=== PATIENT | female | born 1935 ===

== ENCOUNTER 2017-08-19 07:28 | Day surgery (SDC) | payer OTHER, MEDICAID ==
[2017-08-19 07:55] VITALS: BMI 28.9
[2017-08-19] MEDS ORDERED: Propofol 10 mg/ml Inj (20 ML) ONE ×2 (08:47→08:49)
--- NOTE | 2017-08-19 08:51 | CP.SDSHP ---
Same Day Surgery H & P - History Proposed Procedure: Colonoscopy Pre-Op Diagnosis: Lower GI bleeding - Previous Medical/Surgical History Cardiac: Hypertension, ASHD/CAD Endocrine/Metabolic: Diabetes (Hyperlipidemia) Previous Surgical History: CABG MERARI Back surgery - Allergies Allergies: Allergies renax Allergy (Uncoded 10/19/15 13:38) - Current Medications Current Medications: reviewed, per reconciliation - Physical Exam General Appearance: wdwn nad Vital Signs: Vital Signs 08/19/17 07:55 Temperature 97.3 F L Pulse Rate 73 Respiratory 19 Rate Blood Pressure 91/45 L O2 Sat by Pulse 98 Oximetry Mental Status: Alert & Oriented x3 Heart: WNL Lungs: WNL GI: WNL - {Optional Preform as Required} Abdomen: WNL - Impression Impression: Lower GI bleed Pt. Evaluated Today:Candidate for Anesthesia & Procedure: Yes - Date & Time Date: 08/19/17 Time: 08:50 Short Stay Discharge - Short Stay Discharge Admitting Diagnosis/Reason for Visit: RECTAL BLEEDING Disposition: HOME/ ROUTINE
[2017-08-19] MEDS ORDERED: ePHEDrine 50 mg/ml Inj ONE (09:06)
[2017-08-19 09:50] VITALS: TEMP 96.9
[2017-08-19 10:27] VITALS: BP 109/50; PULSE 56; RESP 18; O2SAT 97
== END 2017-08-19 10:24 | disposition home or self-care (01) ==
LOC: C.ENDO 07:28
PROVIDERS: ATTEND Internal Medicine Gastroenterology
DX: K57.31 Diverticulosis of large intestine without perforation or abscess with bleeding (principal); K64.1 Second degree hemorrhoids; I25.10 Atherosclerotic heart disease of native coronary artery without angina pectoris; E11.9 Type 2 diabetes mellitus without complications; I10 Essential (primary) hypertension; E78.5 Hyperlipidemia, unspecified; Z95.1 Presence of aortocoronary bypass graft
CPT/HCPCS: 45378; 82948; J2704

== ENCOUNTER 2019-01-12 21:10 | Observation (INO) | payer OTHER ==
[2019-01-12 21:11] VITALS: BMI 28.9
[2019-01-12] MEDS ORDERED: Iohexol 240 (50 ml) PO ONE (22:15)
[2019-01-12] MEDS ORDERED: Sodium Chloride 0.9% 1,000 ML IV ONE (22:15)
[2019-01-12] MEDS ORDERED: Iohexol 240 (50 ml) ONE (22:27)
[2019-01-12 22:46] LABS: BLOOD UREA NITROGEN 20 mg/dL (7-17); CALCIUM 10.2 mg/dl (8.6-10.4); GFR NON-AFRICAN AMERICAN > 60; LIPASE 336 U/L (23-300)
[2019-01-12 22:50] LABS: ALB/GLOB RATIO 1.7 (1.0-2.1); ALBUMIN 4.5 g/dL (3.5-5.0); ALT/SGPT 21 U/L (9-52); AST/SGOT 64 U/L (14-36)
[2019-01-13 00:01] LABS: BASO % 0.4 % (0.0-2.0); EOS # 0.4 K/uL (0.0-0.7); EOS % 4.9 % (0.0-4.0); HEMOGLOBIN 9.4 g/dL (11.0-16.0); LYMPH # 3.1 K/uL (1.0-4.3); LYMPH % 38.8 % (20.0-40.0); MEAN CELL VOLUME 93.4 fL (81.0-99.0); MEAN CORPUSCULAR HEMOGLOBIN 31.7 pg (27.0-31.0); MEAN CORPUSCULAR HGB CONC 33.9 g/dL (33.0-37.0); MEAN PLATELET VOLUME 8.8 fL (7.2-11.7); MONO # 0.8 K/uL (0.0-0.8); MONO % 10.3 % (0.0-10.0); NEUT # 3.6 K/uL (1.8-7.0); NEUT % 45.6 % (50.0-75.0); NRBC % 0.1 % (0.0-2.0); RBC 2.96 Mil/uL (3.80-5.20); RED CELL DISTRIBUTION WIDTH 13.4 % (11.5-14.5); WHITE BLOOD COUNT 7.9 K/uL (4.8-10.8)
[2019-01-13 00:06] LABS: PROTHROMBIN TIME 11.2 SECONDS (9.7-12.2)
[2019-01-13 00:06] LABS: URINE BACTERIA RARE (<OCC); URINE BILIRUBIN NEGATIVE (NEGATIVE); URINE BLOOD NEGATIVE (NEGATIVE); URINE CLARITY Clear (Clear); URINE COLOR Straw (YELLOW); URINE GLUCOSE (UA) NORMAL (Normal); URINE LEUKOCYTE ESTERASE TRACE Leu/uL (Negative); URINE PROTEIN NEGATIVE (NEGATIVE); URINE UROBILINOGEN NORMAL mg/dL (0.2-1.0)
--- NOTE | 2019-01-13 00:14 | C.PDOC ---
History Of Present Illness 83-year-old female presents to the ED for evaluation of dark stool since 4 days ago. Patient also complains of slight dizziness. She denies fever, chills, or any pain at this time. Chief Complaint (Nursing): GI Problem History Per: Patient History/Exam Limitations: no limitations Onset/Duration Of Symptoms: Days (4) Additional History Per: Patient Past Medical History Reviewed: Historical Data, Nursing Documentation, Vital Signs Vital Signs: Last Vital Signs Temp 98.1 F 01/12/19 21:22 Pulse 67 01/12/19 21:57 Resp 14 01/12/19 21:57 BP 132/55 L 01/12/19 21:57 Pulse Ox 96 01/12/19 21:57 - Medical History PMH: Arthritis, Back Problems, Diabetes, Gastritis, HTN, Hypercholesterolemia, Peripheral Edema Denies: Chronic Kidney Disease Surgical History: Appendectomy, CABG, Coronary Stent, Endoscopy - [facility] Procedures BREAST DX PROCEDURE NEC (05/30/14) COLONOSCOPY (02/01/14) DX ULTRASOUND-THORAX NEC (05/30/14) PERCUTAN NEEDLE BIOPSY OF BREAST (05/30/14) Family History: States: Unknown Family Hx - Social History Hx Tobacco Use: No Hx Alcohol Use: No Hx Substance Use: No - Immunization History Hx Tetanus Toxoid Vaccination: No Hx Influenza Vaccination: Yes Hx Pneumococcal Vaccination: No Review Of Systems Constitutional: Negative for: Fever, Chills Gastrointestinal: Positive for: Other (dark stools ). Negative for: Abdominal Pain, Rectal Pain Neurological: Positive for: Dizziness Physical Exam - Physical Exam Appears: Non-toxic, No Acute Distress Skin: Normal Color, Warm, Dry Head: Atraumatic, Normacephalic Eye(s): bilateral: Normal Inspection Oral Mucosa: Moist Neck: Supple Chest: Symmetrical, No Deformity, No Tenderness Cardiovascular: Rhythm Regular, No Murmur Respiratory: Normal Breath Sounds, No Rales, No Rhonchi, No Wheezing Gastrointestinal/Abdominal: Soft, No Tenderness, No Guarding, No Rebound Rectal: Other (dark stools noted ) Extremity: Normal ROM, Capillary Refill (less than 2 seconds ) Neurological/Psych: Oriented x3, Normal Speech, Normal Cognition ED Course And Treatment - Laboratory Results Result Diagrams: 01/12/19 23:51 01/12/19 23:51 Lab Results: PT 11.2 SECONDS (9.7-12.2) 01/12/19 23:51 INR 1.0 01/12/19 23:51 APTT 37.0 SECONDS (21-34) H 01/12/19 23:51 Total Bilirubin 0.8 mg/dL (0.2-1.3) 01/12/19 22:27 AST 64 U/L (14-36) H 01/12/19 22:27 ALT 21 U/L (9-52) 01/12/19 22:27 Alkaline Phosphatase 31 U/L (38-126) L 01/12/19 22:27 Total Protein 7.1 g/dL (6.3-8.3) 01/12/19 22:27 Albumin 4.5 g/dL (3.5-5.0) 01/12/19 22:27 Globulin 2.6 gm/dL (2.2-3.9) 01/12/19 22:27 Albumin/Globulin Ratio 1.7 (1.0-2.1) 01/12/19 22:27 Lipase 336 U/L (23-300) H 01/12/19 22:27 Urine Color Straw (YELLOW) 01/12/19 23:59 Urine Clarity Clear (Clear) 01/12/19 23:59 Urine pH 6.0 (5.0-8.0) 01/12/19 23:59 Ur Specific [place] 1.003 (1.003-1.030) 01/12/19 23:59 Urine Protein Negative mg/dL (NEGATIVE) 01/12/19 23:59 Urine Glucose (UA) Normal mg/dL (Normal) 01/12/19 23:59 Urine Ketones Negative mg/dL (NEGATIVE) 01/12/19 23:59 Urine Blood Negative (NEGATIVE) 01/12/19 23:59 Urine Nitrate Negative (NEGATIVE) 01/12/19 23:59 Urine Bilirubin Negative (NEGATIVE) 01/12/19 23:59 Urine Urobilinogen Normal mg/dL (0.2-1.0) 01/12/19 23:59 Ur Leukocyte Esterase Trace Veronika/uL (Negative) 01/12/19 23:59 Urine WBC (Auto) 5 /hpf (0-5) 01/12/19 23:59 Urine Bacteria Rare (<OCC) 01/12/19 23:59 ECG: Interpreted By Me, Viewed By Me ECG Rhythm: Sinus Rhythm ECG Interpretation: Normal, No Acute Changes Interpretation Of ECG: NSR, normal tracings. Rate From EC O2 Sat by Pulse Oximetry: 96 (on RA) Pulse Ox Interpretation: Normal Progress Note: Bloodwork, UA, CT A/P, EKG ordered and reviewed. IV Fluids given. Disposition Discussed With : Edwina Falcon Doctor Will See Patient In The: Hospital Counseled Patient/Family Regarding: Diagnosis - Disposition Disposition: HOSPITALIZED Disposition Time: 03:49 Condition: STABLE Forms: [facility] (German) - POA Present On Arrival: None - Clinical Impression Clinical Impression: Gastrointestinal hemorrhage, Abdominal pain - Scribe Statement The provider has reviewed the documentation as recorded by the Scribe (Vinita Kaufman) Provider Attestation: All medical record entries made by the Scribe were at my direction and pers onally dictated by me. I have reviewed the chart and agree that the record accurately reflects my personal performance of the history, physical exam, medical decision making, and the department course for this patient. I have also personally directed, reviewed, and agree with the discharge instructions and disposition.
[2019-01-13 00:24] LABS: ALBUMIN 4.5 g/dL (3.5-5.0); BLOOD UREA NITROGEN 19 mg/dL (7-17); CALCIUM 10.2 mg/dl (8.6-10.4); GFR NON-AFRICAN AMERICAN > 60
[2019-01-13 00:25] LABS: ALB/GLOB RATIO 1.9 (1.0-2.1); ALT/SGPT 19 U/L (9-52); AST/SGOT 30 U/L (14-36)
[2019-01-13] MEDS ORDERED: Iodixanol 320 MG/ML 100 ML BOTTLE IV ONE (00:36)
[2019-01-13 04:28] LABS: MEAN CELL VOLUME 93.8 fL (81.0-99.0); MEAN CORPUSCULAR HEMOGLOBIN 31.3 pg (27.0-31.0); MEAN CORPUSCULAR HGB CONC 33.3 g/dL (33.0-37.0); MEAN PLATELET VOLUME 8.8 fL (7.2-11.7); RBC 2.89 Mil/uL (3.80-5.20); RED CELL DISTRIBUTION WIDTH 13.7 % (11.5-14.5); WHITE BLOOD COUNT 7.7 K/uL (4.8-10.8)
[2019-01-13] MEDS: Dextrose 5%/0.9% NS 1,000 ML IV SCH ×2 (05:05→18:26)
--- NOTE | 2019-01-13 07:49 | CP.PCM.CON ---
History of Present Illness - History of Present Illness History of Present Illness: 83 yo female h/o CAD, DM, HTN, OA c/o dizziness . Had black stools a few days ago.. Reports epig pain x 4 days- poorly described. Denies CP, NSAID. HAd EGD and colonosocpy few yrs ago. Review of Systems - Constitutional Constitutional: Anorexia, Fatigue, Weakness. absent: Fever, Weight Loss - EENT Eyes: absent: Photophobia Nose/Mouth/Throat: absent: Throat Swelling - Cardiovascular Cardiovascular: absent: Chest Pain, Dyspnea - Respiratory Respiratory: absent: Dyspnea, Hemoptysis, Wheezing - Gastrointestinal Gastrointestinal: Abdominal Pain, Melena, Nausea. absent: Constipation, Hematemesis, Hematochezia, Loose Stools, Vomiting - Genitourinary Genitourinary: absent: Hematuria - Musculoskeletal Musculoskeletal: absent: Muscle Cramps - Integumentary Integumentary: absent: Pruritus, Rash, Jaundice - Neurological Neurological: absent: Abnormal Gait, Convulsions Past Patient History - Infectious Disease Hx of Infectious Diseases: None - Past Medical History & Family History Past Medical History?: Yes - Past Social History Smoking Status: Never Smoked - CARDIAC Hx Hypercholesterolemia: Yes Hx Hypertension: Yes Hx Peripheral Edema: Yes - PULMONARY Hx Respiratory Disorders: No - NEUROLOGICAL Hx Neurological Disorder: Yes (OTERO'S PALSY) - HEENT Hx HEENT Problems: Yes Hx Cataracts: Yes (both eyes) - RENAL Hx Chronic Kidney Disease: No - ENDOCRINE/METABOLIC Hx Endocrine Disorders: Yes Hx Diabetes Mellitus Type 2: Yes - HEMATOLOGICAL/ONCOLOGICAL Hx Blood Disorders: Yes Hx Blood Transfusions: Yes (2010) - INTEGUMENTARY Hx Dermatological Problems: No - MUSCULOSKELETAL/RHEUMATOLOGICAL Hx Arthritis: Yes - GASTROINTESTINAL Hx Gastritis: Yes - GENITOURINARY/GYNECOLOGICAL Hx Genitourinary Disorders: No - PSYCHIATRIC Hx Substance Use: No - SURGICAL HISTORY Hx Appendectomy: Yes Hx Coronary Artery Bypass Graft: Yes Hx Coronary Stent: Yes - ANESTHESIA Hx Anesthesia: Yes Hx Anesthesia Reactions: No Hx Malignant Hyperthermia: No Meds Allergies/Adverse Reactions: Allergies Allergy/AdvReac Type Severity Reaction Status Date / Time renax Allergy Uncoded 10/19/15 13:38 - Medications Medications: Current Medications Famotidine (Pepcid) 20 mg IVP Q12 [facility] Home Med (Multivit,Iron,Min 5/Folic Acid [Strovite Forte Caplet]) 1 tab PO DAILY [facility] Home Med (Simvastatin [Simvastatin]) 20 mg PO HS [facility] Hydralazine HCl (Apresoline) 50 mg PO BID [facility] Dextrose/Sodium Chloride (Dextrose 5%/0.9% Ns 1000 Ml) 1,000 mls @ 75 mls/hr IV .[id number] [facility] Last Admin: 01/13/19 05:05 Dose: 75 mls/hr Isosorbide Mononitrate (Imdur) 30 mg PO DAILY [facility] Labetalol HCl (Trandate) 200 mg PO BID [facility] Lisinopril (Zestril) 20 mg PO DAILY [facility] Triamterene/HCTZ (Dyazide 25 Mg-37.5 Mg) 1 cap PO DAILY [facility] Physical Exam - Constitutional Appears: Non-toxic - Neck Exam Neck exam: Negative for: Tenderness - Respiratory Exam Respiratory Exam: Clear to Auscultation Bilateral - Cardiovascular Exam Cardiovascular Exam: RRR - GI/Abdominal Exam GI & Abdominal Exam: Normal Bowel Sounds, Soft. absent: Guarding, Mass, Re bound, Tenderness - Extremities Exam Extremities exam: Negative for: pedal edema - Neurological Exam Neurological exam: Alert, Oriented x3 Results - Vital Signs Recent Vital Signs: Last Vital Signs Temp 98.1 F 01/13/19 05:40 Pulse 61 01/13/19 05:40 Resp 20 01/13/19 05:40 BP 147/72 01/13/19 05:40 Pulse Ox 95 01/13/19 05:40 - Labs Result Diagrams: 01/13/19 03:44 01/12/19 23:51 Labs: Laboratory Results - last 24 hr 01/12/19 01/12/19 01/12/19 22:27 22:31 23:51 WBC RBC Hgb Hct MCV MCH MCHC RDW Plt Count MPV Neut % (Auto) Lymph % (Auto) [place] % (Auto) Eos % (Auto) Baso % (Auto) Neut # (Auto) Lymph # (Auto) [place] # (Auto) Eos # (Auto) Baso # (Auto) PT 11.2 INR 1.0 APTT 37.0 H Sodium 129 L Potassium 5.0 Chloride 96 L Carbon Dioxide 25 Anion Gap 13 BUN 20 H Creatinine 0.8 Est GFR ( Amer) > 60 Est GFR (Non-Af Amer) > 60 Random Glucose 145 H D Calcium 10.2 Total Bilirubin 0.8 AST 64 H ALT 21 Alkaline Phosphatase 31 L Total Protein 7.1 Albumin 4.5 Globulin 2.6 Albumin/Globulin Ratio 1.7 Lipase 336 H Urine Color Urine Clarity Urine pH Ur Specific [place] Urine Protein Urine Glucose (UA) Urine Ketones Urine Blood Urine Nitrate Urine Bilirubin Urine Urobilinogen Ur Leukocyte Esterase Urine WBC (Auto) Urine Bacteria Stool Occult Blood Positive H Blood Type Antibody Screen 01/12/19 01/12/19 01/12/19 23:51 23:51 23:51 WBC 7.9 D RBC 2.96 L Hgb 9.4 L D Hct 27.6 L MCV 93.4 MCH 31.7 H MCHC 33.9 RDW 13.4 Plt Count 207 MPV 8.8 Neut % (Auto) 45.6 L Lymph % (Auto) 38.8 [place] % (Auto) 10.3 H Eos % (Auto) 4.9 H Baso % (Auto) 0.4 Neut # (Auto) 3.6 Lymph # (Auto) 3.1 [place] # (Auto) 0.8 Eos # (Auto) 0.4 Baso # (Auto) 0.0 PT INR APTT Sodium 129 L Potassium 4.1 Chloride 95 L Carbon Dioxide 24 Anion Gap 14 BUN 19 H Creatinine 0.8 Est GFR ( Amer) > 60 Est GFR (Non-Af Amer) > 60 Random Glucose 117 H Calcium 10.2 Total Bilirubin 0.2 AST 30 ALT 19 Alkaline Phosphatase 47 Total Protein 6.8 Albumin 4.5 Globulin 2.4 Albumin/Globulin Ratio 1.9 Lipase Urine Color Urine Clarity Urine pH Ur Specific [place] Urine Protein Urine Glucose (UA) Urine Ketones Urine Blood Urine Nitrate Urine Bilirubin Urine Urobilinogen Ur Leukocyte Esterase Urine WBC (Auto) Urine Bacteria Stool Occult Blood Blood Type O POSITIVE Antibody Screen Negative 01/12/19 01/13/19 23:59 03:44 WBC 7.7 RBC 2.89 L Hgb 9.0 L Hct 27.1 L MCV 93.8 MCH 31.3 H MCHC 33.3 RDW 13.7 Plt Count 202 MPV 8.8 Neut % (Auto) Lymph % (Auto) [place] % (Auto) Eos % (Auto) Baso % (Auto) Neut # (Auto) Lymph # (Auto) [place] # (Auto) Eos # (Auto) Baso # (Auto) PT INR APTT Sodium Potassium Chloride Carbon Dioxide Anion Gap BUN Creatinine Est GFR ( Amer) Est GFR (Non-Af Amer) Random Glucose Calcium Total Bilirubin AST ALT Alkaline Phosphatase Total Protein Albumin Globulin Albumin/Globulin Ratio Lipase Urine Color Straw Urine Clarity Clear Urine pH 6.0 Ur Specific [place] 1.003 Urine Protein Negative Urine Glucose (UA) Normal Urine Ketones Negative Urine Blood Negative Urine Nitrate Negative Urine Bilirubin Negative Urine Urobilinogen Normal Ur Leukocyte Esterase Trace Urine WBC (Auto) 5 Urine Bacteria Rare Stool Occult Blood Blood Type Antibody Screen Assessment & Plan (1) Abdominal pain Assessment and Plan: consider gastrtis, ulcer Status: Acute (2) Gastrointestinal hemorrhage Assessment and Plan: Melena. Hb=9. Consdier PUD, AVM. REc: NPO, EGD, pPI IV. check Hb. Hold aspirin, plavix Status: Acute (3) CAD (coronary artery disease) Status: Acute (4) Diabetes Status: Acute (5) Hyponatremia Assessment and Plan: [id number] Status: Acute (6) Elevated lipase Assessment and Plan: mild. Doubt pancreatitis. Status: Acute
--- NOTE | 2019-01-13 09:38 | CT ---
Date of service: 01/13/2019 PROCEDURE: CT Abdomen and Pelvis with contrast HISTORY: GI bleeding COMPARISON: None available. TECHNIQUE: CT scan of the abdomen and pelvis was performed after administration of intravenous contrast. Oral contrast was administered. Coronal and sagittal reformatted images were obtained. Contrast dose: 100 mL Visipaque 320 Radiation dose: Total exam DLP = 419.98 mGy-cm. This CT exam was performed using one or more of the following dose reduction techniques: Automated exposure control, adjustment of the mA and/or kV according to patient size, and/or use of iterative reconstruction technique. FINDINGS: LOWER THORAX: The visualized lungs are clear. LIVER: Normal in size. No gross lesion or ductal dilatation. GALLBLADDER AND BILE DUCTS: Well distended. No calcified gallstones, wall thickening or pericholecystic fluid. PANCREAS: Normal in size. No gross lesion or ductal dilatation. SPLEEN: Normal in size. ADRENALS: No discrete nodule. KIDNEYS AND URETERS: The right kidney surgically absent. The left kidney is normal in size normal in size. No hydronephrosis. VASCULATURE: No aortic aneurysm. There are aortic atherosclerotic calcifications present. BOWEL: The small bowel loops are normal in caliber. There is large amount of stool in the ascending and transverse colon. No evidence for bowel obstruction. APPENDIX: Normal appendix. PERITONEUM: No free fluid. No free air. LYMPH NODES: No enlarged lymph nodes. BLADDER: Well distended and normal in appearance. REPRODUCTIVE: The uterus is normal in size. BONES: No acute fracture. Within normal limits for the patient's age. OTHER FINDINGS: There is a spigelian hernia in the right lower quadrant several nonobstructed small bowel lobes. There is a right supraumbilical ventral hernia containing part of the left hepatic lobe. IMPRESSION: 1. 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 2. Right supraumbilical ventral hernia containing portion of the left hepatic lobe. 3. Status post right nephrectomy. 4. Constipation. A preliminary report was provided by [employer].
[2019-01-13] MEDS ORDERED: hydroCHLOROthiazide-Triamterene 25 mg-37.5 mg Cap UD PO SCH (10:00)
[2019-01-13] MEDS: Multivitamin With Minerals Tab PO SCH (10:08)
[2019-01-13] MEDS ORDERED: Lactated Ringer's 500 ML IV ONE ×2 (12:16)
[2019-01-13] MEDS ORDERED: Propofol 10 mg/ml Inj (20 ML) ONE (12:17)
--- NOTE | 2019-01-13 12:24 | CP.PCM.PN ---
Subjective - Date & Time of Evaluation Date of Evaluation: 01/13/19 Time of Evaluation: 12:24 - Subjective Subjective: EGD- pylorus ulcer. No bleeding. Objective - Vital Signs/Intake and Output Vital Signs (last 24 hours): Temp Pulse Resp BP Pulse Ox 98.1 F 71 20 127/66 97 01/13/19 07:47 01/13/19 07:47 01/13/19 07:47 01/13/19 07:47 01/13/19 09:00 - Medications Medications: Current Medications Famotidine (Pepcid) 20 mg IVP Q12 [facility] Last Admin: 01/13/19 10:07 Dose: 20 mg Hydralazine HCl (Apresoline) 50 mg PO BID [facility] Last Admin: 01/13/19 10:08 Dose: 50 mg Dextrose/Sodium Chloride (Dextrose 5%/0.9% Ns 1000 Ml) 1,000 mls @ 75 mls/hr IV .[id number] [facility] Last Admin: 01/13/19 05:05 Dose: 75 mls/hr Isosorbide Mononitrate (Imdur Er) 30 mg PO DAILY [facility] Last Admin: 01/13/19 10:07 Dose: 30 mg Labetalol HCl (Trandate) 200 mg PO BID [facility] Last Admin: 01/13/19 10:08 Dose: 200 mg Lisinopril (Zestril) 20 mg PO DAILY [facility] Last Admin: 01/13/19 10:08 Dose: 20 mg Multivitamins/Minerals (Therapeutic-M Tab) 1 tab PO DAILY [facility] Last Admin: 01/13/19 10:08 Dose: 1 tab Pantoprazole Sodium (Protonix Inj) 40 mg IVP Q12H [facility] Last Admin: 01/13/19 09:00 Dose: 40 mg Rosuvastatin Calcium (Crestor) 5 mg PO HS [facility] Triamterene/HCTZ (Dyazide 25 Mg-37.5 Mg) 1 cap PO DAILY [facility] Last Admin: 01/13/19 10:08 Dose: 1 cap - Labs Labs: 01/13/19 03:44 01/12/19 23:51 PT 11.2 SECONDS (9.7-12.2) 01/12/19 23:51 INR 1.0 01/12/19 23:51 APTT 37.0 SECONDS (21-34) H 01/12/19 23:51 Assessment and Plan (1) Abdominal pain Status: Acute (2) Gastrointestinal hemorrhage Status: Acute (3) CAD (coronary artery disease) Status: Acute (4) Diabetes Status: Acute (5) Hyponatremia Status: Acute (6) Elevated lipase Status: Acute
[2019-01-13 14:14] LABS: HEMOGLOBIN 9.4 g/dL (11.0-16.0); MEAN CELL VOLUME 94.2 fL (81.0-99.0); MEAN CORPUSCULAR HEMOGLOBIN 32.1 pg (27.0-31.0); MEAN CORPUSCULAR HGB CONC 34.1 g/dL (33.0-37.0); MEAN PLATELET VOLUME 8.8 fL (7.2-11.7); RBC 2.93 Mil/uL (3.80-5.20); RED CELL DISTRIBUTION WIDTH 13.7 % (11.5-14.5); WHITE BLOOD COUNT 7.5 K/uL (4.8-10.8)
--- NOTE | 2019-01-13 14:51 | CP.PCM.HP ---
History of Present Illness - History of Present Illness History of Present Illness: cc; abd pain and weakness HPI; Pt is an 83 year old female well known to me who presented to my office with co of feeling low energy, weakness and upset stomach. Pt stated she was constipated for one week and that 4 days ago she noted her stools were black. No bm since then. Pt has been on ASA and Plavix for cardiac disease. pt had a cbc in my office, hemoglobin was 8.5. she was called yesterday afternoon to come to ER. Pt had an EGD today. Prior to EGD she states had a bm with black stools. pt denies chest pain or sob +EGD today showed ulcer, and gastritis PMH htn DM elevated chol Present on Admission - Present on Admission Any Indicators Present on Admission: No Review of Systems - EENT Eyes: absent: Blurred Vision Ears: Decreased Hearing, Dizziness Nose/Mouth/Throat: absent: Dry Mouth - Cardiovascular Cardiovascular: absent: Chest Pain, Edema, Syncope - Respiratory Respiratory: absent: Cough - Gastrointestinal Gastrointestinal: Abdominal Pain, Constipation, Melena. absent: Diarrhea, Vomiting - Genitourinary Genitourinary: absent: Freq UTI Past Patient History - Infectious Disease Hx of Infectious Diseases: None - Past Medical History & Family History Past Medical History?: Yes - Past Social History Smoking Status: Never Smoked - CARDIAC Hx Hypercholesterolemia: Yes Hx Hypertension: Yes Hx Peripheral Edema: Yes - PULMONARY Hx Respiratory Disorders: No - NEUROLOGICAL Hx Neurological Disorder: Yes (OTERO'S PALSY) - HEENT Hx HEENT Problems: Yes Hx Cataracts: Yes (both eyes) - RENAL Hx Chronic Kidney Disease: No - ENDOCRINE/METABOLIC Hx Endocrine Disorders: Yes Hx Diabetes Mellitus Type 2: Yes - HEMATOLOGICAL/ONCOLOGICAL Hx Blood Disorders: Yes Hx Blood Transfusions: Yes (2010) - INTEGUMENTARY Hx Dermatological Problems: No - MUSCULOSKELETAL/RHEUMATOLOGICAL Hx Arthritis: Yes - GASTROINTESTINAL Hx Gastritis: Yes - GENITOURINARY/GYNECOLOGICAL Hx Genitourinary Disorders: No - PSYCHIATRIC Hx Substance Use: No - SURGICAL HISTORY Hx Appendectomy: Yes Hx Coronary Artery Bypass Graft: Yes Hx Coronary Stent: Yes - ANESTHESIA Hx Anesthesia: Yes Hx Anesthesia Reactions: No Hx Malignant Hyperthermia: No Meds Allergies/Adverse Reactions: Allergies Allergy/AdvReac Type Severity Reaction Status Date / Time renax Allergy Uncoded 10/19/15 13:38 Physical Exam - Constitutional Appears: Non-toxic - Eye Exam Eye Exam: Normal appearance - ENT Exam ENT Exam: Mucous Membranes Moist - Neck Exam Neck exam: Negative for: Lymphadenopathy - Respiratory Exam Respiratory Exam: Clear to Auscultation Bilateral - Cardiovascular Exam Cardiovascular Exam: REGULAR RHYTHM, RRR, +S1, +S2. absent: JVD, Rubs - GI/Abdominal Exam GI & Abdominal Exam: Normal Bowel Sounds, Soft. absent: Tenderness Results - Vital Signs Recent Vital Signs: Last Vital Signs Temp 98.7 F 01/13/19 13:49 Pulse 66 01/13/19 13:49 Resp 20 01/13/19 13:49 BP 105/58 L 01/13/19 13:49 Pulse Ox 97 01/13/19 13:49 - Labs Result Diagrams: 01/13/19 14:01 01/12/19 23:51 Labs: Laboratory Results - last 24 hr 01/12/19 01/12/19 01/12/19 22:27 22:31 23:51 WBC RBC Hgb Hct MCV MCH MCHC RDW Plt Count MPV Neut % (Auto) Lymph % (Auto) [place] % (Auto) Eos % (Auto) Baso % (Auto) Neut # (Auto) Lymph # (Auto) [place] # (Auto) Eos # (Auto) Baso # (Auto) PT 11.2 INR 1.0 APTT 37.0 H Sodium 129 L Potassium 5.0 Chloride 96 L Carbon Dioxide 25 Anion Gap 13 BUN 20 H Creatinine 0.8 Est GFR ( Amer) > 60 Est GFR (Non-Af Amer) > 60 Random Glucose 145 H D Calcium 10.2 Total Bilirubin 0.8 AST 64 H ALT 21 Alkaline Phosphatase 31 L Total Protein 7.1 Albumin 4.5 Globulin 2.6 Albumin/Globulin Ratio 1.7 Lipase 336 H Urine Color Urine Clarity Urine pH Ur Specific [place] Urine Protein Urine Glucose (UA) Urine Ketones Urine Blood Urine Nitrate Urine Bilirubin Urine Urobilinogen Ur Leukocyte Esterase Urine WBC (Auto) Urine Bacteria Stool Occult Blood Positive H Blood Type Antibody Screen 01/12/19 01/12/19 01/12/19 23:51 23:51 23:51 WBC 7.9 D RBC 2.96 L Hgb 9.4 L D Hct 27.6 L MCV 93.4 MCH 31.7 H MCHC 33.9 RDW 13.4 Plt Count 207 MPV 8.8 Neut % (Auto) 45.6 L Lymph % (Auto) 38.8 [place] % (Auto) 10.3 H Eos % (Auto) 4.9 H Baso % (Auto) 0.4 Neut # (Auto) 3.6 Lymph # (Auto) 3.1 [place] # (Auto) 0.8 Eos # (Auto) 0.4 Baso # (Auto) 0.0 PT INR APTT Sodium 129 L Potassium 4.1 Chloride 95 L Carbon Dioxide 24 Anion Gap 14 BUN 19 H Creatinine 0.8 Est GFR ( Amer) > 60 Est GFR (Non-Af Amer) > 60 Random Glucose 117 H Calcium 10.2 Total Bilirubin 0.2 AST 30 ALT 19 Alkaline Phosphatase 47 Total Protein 6.8 Albumin 4.5 Globulin 2.4 Albumin/Globulin Ratio 1.9 Lipase Urine Color Urine Clarity Urine pH Ur Specific [place] Urine Protein Urine Glucose (UA) Urine Ketones Urine Blood Urine Nitrate Urine Bilirubin Urine Urobilinogen Ur Leukocyte Esterase Urine WBC (Auto) Urine Bacteria Stool Occult Blood Blood Type O POSITIVE Antibody Screen Negative 01/12/19 01/13/19 01/13/19 23:59 03:44 14:01 WBC 7.7 7.5 RBC 2.89 L 2.93 L Hgb 9.0 L 9.4 L Hct 27.1 L 27.6 L MCV 93.8 94.2 MCH 31.3 H 32.1 H MCHC 33.3 34.1 RDW 13.7 13.7 Plt Count 202 212 MPV 8.8 8.8 Neut % (Auto) Lymph % (Auto) [place] % (Auto) Eos % (Auto) Baso % (Auto) Neut # (Auto) Lymph # (Auto) [place] # (Auto) Eos # (Auto) Baso # (Auto) PT INR APTT Sodium Potassium Chloride Carbon Dioxide Anion Gap BUN Creatinine Est GFR ( Amer) Est GFR (Non-Af Amer) Random Glucose Calcium Total Bilirubin AST ALT Alkaline Phosphatase Total Protein Albumin Globulin Albumin/Globulin Ratio Lipase Urine Color Straw Urine Clarity Clear Urine pH 6.0 Ur Specific [place] 1.003 Urine Protein Negative Urine Glucose (UA) Normal Urine Ketones Negative Urine Blood Negative Urine Nitrate Negative Urine Bilirubin Negative Urine Urobilinogen Normal Ur Leukocyte Esterase Trace Urine WBC (Auto) 5 Urine Bacteria Rare Stool Occult Blood Blood Type Antibody Screen Assessment & Plan - Assessment and Plan (Free Text) Assessment: GI bleed stomach ulcer and gastritis hold asa and plavix will inform her cardiologyst ppi DM monitor bp on low side ; monitor hyponatremia normal saline ordered cbc in AM
--- NOTE | 2019-01-13 19:34 | CARD ---
APPROVED REPORT Date of service: 01/12/2019 EKG Measurement Heart [id number] <Conclusion> Normal sinus rhythm Normal ECG
[2019-01-14 07:31] LABS: HEMOGLOBIN 8.4 g/dL (11.0-16.0); MEAN CELL VOLUME 94.4 fL (81.0-99.0); MEAN CORPUSCULAR HEMOGLOBIN 32.1 pg (27.0-31.0); MEAN CORPUSCULAR HGB CONC 33.9 g/dL (33.0-37.0); MEAN PLATELET VOLUME 8.6 fL (7.2-11.7); RBC 2.62 Mil/uL (3.80-5.20); RED CELL DISTRIBUTION WIDTH 13.8 % (11.5-14.5); WHITE BLOOD COUNT 6.9 K/uL (4.8-10.8)
[2019-01-14 07:52] LABS: BLOOD UREA NITROGEN 13 mg/dL (7-17); CALCIUM 9.8 mg/dl (8.6-10.4); GFR NON-AFRICAN AMERICAN > 60; LIPASE 324 U/L (23-300)
[2019-01-14] MEDS: Dextrose 5%/0.9% NS 1,000 ML IV SCH (07:57)
[2019-01-14] MEDS: Multivitamin With Minerals Tab PO SCH (09:50)
--- NOTE | 2019-01-14 13:56 | CP.PCM.CON ---
History of Present Illness - History of Present Illness History of Present Illness: CC: Blood loss HPI: 83 year old female with chronic medical problems 1. ASHD s/p CABG denies angina 2. Diabetes is chornic and stable 3. HTN is chornic and stable Review of Systems - Review of Systems All systems: reviewed and no additional remarkable complaints except Past Patient History - Infectious Disease Hx of Infectious Diseases: None - Past Medical History & Family History Past Medical History?: Yes - Past Social History Smoking Status: Never Smoked - CARDIAC Hx Hypercholesterolemia: Yes Hx Hypertension: Yes Hx Peripheral Edema: Yes - PULMONARY Hx Respiratory Disorders: No - NEUROLOGICAL Hx Neurological Disorder: Yes (OTERO'S PALSY) - HEENT Hx HEENT Problems: Yes Hx Cataracts: Yes (both eyes) - RENAL Hx Chronic Kidney Disease: No - ENDOCRINE/METABOLIC Hx Endocrine Disorders: Yes Hx Diabetes Mellitus Type 2: Yes - HEMATOLOGICAL/ONCOLOGICAL Hx Blood Disorders: Yes Hx Blood Transfusions: Yes (2010) - INTEGUMENTARY Hx Dermatological Problems: No - MUSCULOSKELETAL/RHEUMATOLOGICAL Hx Arthritis: Yes - GASTROINTESTINAL Hx Gastritis: Yes - GENITOURINARY/GYNECOLOGICAL Hx Genitourinary Disorders: No - PSYCHIATRIC Hx Substance Use: No - SURGICAL HISTORY Hx Appendectomy: Yes Hx Coronary Artery Bypass Graft: Yes Hx Coronary Stent: Yes - ANESTHESIA Hx Anesthesia: Yes Hx Anesthesia Reactions: No Hx Malignant Hyperthermia: No Meds Allergies/Adverse Reactions: Allergies Allergy/AdvReac Type Severity Reaction Status Date / Time renax Allergy Uncoded 10/19/15 13:38 - Medications Medications: Current Medications Hydralazine HCl (Apresoline) 50 mg PO BID [facility] Last Admin: 01/14/19 09:49 Dose: 50 mg Isosorbide Mononitrate (Imdur Er) 30 mg PO DAILY [facility] Last Admin: 01/14/19 09:49 Dose: 30 mg Labetalol HCl (Trandate) 200 mg PO BID [facility] Last Admin: 01/14/19 09:54 Dose: 200 mg Lisinopril (Zestril) 20 mg PO DAILY [facility] Last Admin: 01/14/19 09:53 Dose: 20 mg Multivitamins/Minerals (Therapeutic-M Tab) 1 tab PO DAILY [facility] Last Admin: 01/14/19 09:50 Dose: 1 tab Pantoprazole Sodium (Protonix Inj) 40 mg IVP Q12H [facility] Last Admin: 01/14/19 08:40 Dose: 40 mg Rosuvastatin Calcium (Crestor) 5 mg PO HS [facility] Last Admin: 01/13/19 21:23 Dose: 5 mg Physical Exam - Constitutional Appears: Well, Non-toxic - Head Exam Head Exam: ATRAUMATIC, NORMAL INSPECTION - Eye Exam Eye Exam: PERRL. absent: Scleral icterus - ENT Exam ENT Exam: Mucous Membranes Moist, Normal External Ear Exam - Neck Exam Neck exam: Negative for: Full Rom, Thyromegaly - Respiratory Exam Respiratory Exam: Clear to Auscultation Bilateral, NORMAL BREATHING PATTERN - Cardiovascular Exam Cardiovascular Exam: REGULAR RHYTHM, RRR, +S1, +S2. absent: JVD Additional comments: +sternotomy wound - GI/Abdominal Exam GI & Abdominal Exam: Diminished Bowel Sounds, Normal Bowel Sounds. absent: Organomegaly - Extremities Exam Extremities exam: Negative for: calf tenderness, pedal edema - Neurological Exam Neurological exam: Oriented x3 Additional comments: Facial weakness from [place] - Psychiatric Exam Psychiatric exam: Normal Affect, Normal Mood Results - Vital Signs Recent Vital Signs: Last Vital Signs Temp 98.3 F 01/14/19 09:48 Pulse 73 01/14/19 09:48 Resp 20 01/14/19 09:48 BP 128/69 01/14/19 09:48 Pulse Ox 97 01/14/19 12:06 - Labs Result Diagrams: 01/14/19 07:25 01/14/19 07:20 Labs: Laboratory Results - last 24 hr 01/13/19 01/14/19 01/14/19 14:01 07:20 07:25 WBC 7.5 6.9 RBC 2.93 L 2.62 L Hgb 9.4 L 8.4 L Hct 27.6 L 24.7 L MCV 94.2 94.4 MCH 32.1 H 32.1 H MCHC 34.1 33.9 RDW 13.7 13.8 Plt Count 212 205 MPV 8.8 8.6 Sodium 134 Potassium 4.3 Chloride 103 Carbon Dioxide 26 Anion Gap 9 L BUN 13 Creatinine 0.8 Est GFR ( Amer) > 60 Est GFR (Non-Af Amer) > 60 Random Glucose 125 H Calcium 9.8 Lipase 324 H - EKG Data EKG Interpreted by: Myself EKG shows normal: Sinus rhythm Rate: Normal Assessment & Plan - Assessment and Plan (Free Text) Assessment: 83 year old female with iron deficiency anemia due to acute blood loss from peptic ulcer, high dose PPI s/p EGD no active bleeding Peptic ulcer disease Follow up H pylori biopsy and if appropriate initiate ABX ASHD its acceptable to stop dual anti platelet therapy continue high dose of statin HTN is chronic and stable anti hypertensives as tolerated DM is chronic and stable on sliding scale insulin - Date & Time Date: 01/14/19 Time: 13:58
--- NOTE | 2019-01-14 15:25 | CP.PCM.PN ---
Subjective - Date & Time of Evaluation Date of Evaluation: 01/14/19 Time of Evaluation: 14:30 - Subjective Subjective: f/u GI bleeed Feels well Denies abd pain, Rb, melena, MCKINNEY, cough, CP, SOB, cough Objective - Vital Signs/Intake and Output Vital Signs (last 24 hours): Temp Pulse Resp BP Pulse Ox 98.3 F 73 20 128/69 97 01/14/19 09:48 01/14/19 09:48 01/14/19 09:48 01/14/19 09:48 01/14/19 12:06 Intake and Output: 01/14/19 01/14/19 06:59 18:59 Intake Total 1800 600 Balance 1800 600 - Medications Medications: Current Medications Hydralazine HCl (Apresoline) 50 mg PO BID [facility] Last Admin: 01/14/19 09:49 Dose: 50 mg Isosorbide Mononitrate (Imdur Er) 30 mg PO DAILY [facility] Last Admin: 01/14/19 09:49 Dose: 30 mg Labetalol HCl (Trandate) 200 mg PO BID [facility] Last Admin: 01/14/19 09:54 Dose: 200 mg Lisinopril (Zestril) 20 mg PO DAILY [facility] Last Admin: 01/14/19 09:53 Dose: 20 mg Multivitamins/Minerals (Therapeutic-M Tab) 1 tab PO DAILY [facility] Last Admin: 01/14/19 09:50 Dose: 1 tab Pantoprazole Sodium (Protonix Inj) 40 mg IVP Q12H [facility] Last Admin: 01/14/19 08:40 Dose: 40 mg Rosuvastatin Calcium (Crestor) 5 mg PO HS [facility] Last Admin: 01/13/19 21:23 Dose: 5 mg - Labs Labs: 01/14/19 07:25 01/14/19 07:20 PT 11.2 SECONDS (9.7-12.2) 01/12/19 23:51 INR 1.0 01/12/19 23:51 APTT 37.0 SECONDS (21-34) H 01/12/19 23:51 - Constitutional Appears: Well - Respiratory Exam Respiratory Exam: Clear to Ausculation Bilateral - Cardiovascular Exam Cardiovascular Exam: RRR - GI/Abdominal Exam GI & Abdominal Exam: Soft, Normal Bowel Sounds. absent: Tenderness - Neurological Exam Neurological Exam: Alert, Awake, Oriented x3 Assessment and Plan (1) Abdominal pain Assessment & Plan: ulcer, gastritis Status: Acute (2) Gastrointestinal hemorrhage Assessment & Plan: ulcer. No active bleed at EGD Status: Acute (3) CAD (coronary artery disease) Status: Acute (4) Diabetes Status: Acute (5) Hyponatremia Status: Acute (6) Elevated lipase Assessment & Plan: no pancreatitis. Status: Acute (7) Gastric ulcer Assessment & Plan: seen at EGD. Was likley the source for GI bleed. Consider AVM. sl decrease Hb. P- PPI, check h pylori stool, check Hb. Plavix/ASA hold? Status: Acute
--- NOTE | 2019-01-14 18:03 | CP.PCM.PN ---
Subjective - Date & Time of Evaluation Date of Evaluation: 01/14/19 Time of Evaluation: 18:03 - Subjective Subjective: PT reports feeling well no chst pain or sob no BM since yesterday AM pt states she suffers from chronic constipation Objective - Vital Signs/Intake and Output Vital Signs (last 24 hours): Temp Pulse Resp BP Pulse Ox 98.4 F 66 18 129/65 96 01/14/19 17:11 01/14/19 17:11 01/14/19 17:11 01/14/19 17:11 01/14/19 17:11 Intake and Output: 01/14/19 01/14/19 06:59 18:59 Intake Total 1800 600 Balance 1800 600 - Medications Medications: Current Medications Ferric Sodium Gluconate Complex (Ferrlecit) 125 mg IVPB DAILY [facility] Stop: 01/15/19 10:01 Hydralazine HCl (Apresoline) 50 mg PO BID [facility] Last Admin: 01/14/19 17:16 Dose: 50 mg Isosorbide Mononitrate (Imdur Er) 30 mg PO DAILY [facility] Last Admin: 01/14/19 09:49 Dose: 30 mg Labetalol HCl (Trandate) 200 mg PO BID [facility] Last Admin: 01/14/19 17:16 Dose: 200 mg Lisinopril (Zestril) 20 mg PO DAILY [facility] Last Admin: 01/14/19 09:53 Dose: 20 mg Multivitamins/Minerals (Therapeutic-M Tab) 1 tab PO DAILY [facility] Last Admin: 01/14/19 09:50 Dose: 1 tab Pantoprazole Sodium (Protonix Inj) 40 mg IVP Q12H [facility] Last Admin: 01/14/19 08:40 Dose: 40 mg Rosuvastatin Calcium (Crestor) 5 mg PO HS [facility] Last Admin: 01/13/19 21:23 Dose: 5 mg - Labs Labs: 01/14/19 07:25 01/14/19 07:20 PT 11.2 SECONDS (9.7-12.2) 01/12/19 23:51 INR 1.0 01/12/19 23:51 APTT 37.0 SECONDS (21-34) H 01/12/19 23:51 - Constitutional Appears: Well, Non-toxic - Eye Exam Eye Exam: Normal appearance - ENT Exam ENT Exam: Mucous Membranes Moist - Respiratory Exam Respiratory Exam: Clear to Ausculation Bilateral - Cardiovascular Exam Cardiovascular Exam: REGULAR RHYTHM, RRR, +S1, +S2. absent: JVD - GI/Abdominal Exam GI & Abdominal Exam: Normal Bowel Sounds - Rectal Exam Rectal Exam: absent: Black Stool - Extremities Exam Extremities Exam: Full ROM Assessment and Plan - Assessment and Plan (Free Text) Assessment: sp gi bleed chronic constipation pt will have a hard time taking po iron due to chronic constipation will give two runs of IV iron before discharge saw hgb drop, so will hold discharge until Am cbc in am, if stable will dc home bp is good cad sp cabg ; doing well ok to hold asa and plavix per cardio
[2019-01-14] MEDS: POLYETHYLENE GLYCOL 3350 17 GM/Dose PACKET PO SCH (18:45)
[2019-01-14] MEDS: Ferric Sodium Gluconat Complex 62.5 mg/5 ml Vial IVPB SCH (18:59)
[2019-01-15 00:16] VITALS: RESP 20
--- NOTE | 2019-01-15 07:25 | CP.PCM.PN ---
Subjective - Date & Time of Evaluation Date of Evaluation: 01/15/19 Time of Evaluation: 07:24 - Subjective Subjective: Events reviewed Objective - Vital Signs/Intake and Output Vital Signs (last 24 hours): Temp Pulse Resp BP Pulse Ox 98.6 F 60 20 111/69 97 01/15/19 00:00 01/15/19 00:00 01/15/19 00:00 01/15/19 00:00 01/15/19 04:09 Intake and Output: 01/15/19 01/15/19 06:59 18:59 Intake Total 580 Balance 580 - Medications Medications: Current Medications Ferric Sodium Gluconate Complex (Ferrlecit) 125 mg IVPB DAILY [facility] Stop: 01/15/19 10:01 Last Admin: 01/14/19 18:59 Dose: 125 mg Hydralazine HCl (Apresoline) 50 mg PO BID [facility] Last Admin: 01/14/19 17:16 Dose: 50 mg Isosorbide Mononitrate (Imdur Er) 30 mg PO DAILY [facility] Last Admin: 01/14/19 09:49 Dose: 30 mg Labetalol HCl (Trandate) 200 mg PO BID [facility] Last Admin: 01/14/19 17:16 Dose: 200 mg Lisinopril (Zestril) 20 mg PO DAILY [facility] Last Admin: 01/14/19 09:53 Dose: 20 mg Multivitamins/Minerals (Therapeutic-M Tab) 1 tab PO DAILY [facility] Last Admin: 01/14/19 09:50 Dose: 1 tab Pantoprazole Sodium (Protonix Inj) 40 mg IVP Q12H [facility] Last Admin: 01/14/19 19:16 Dose: 40 mg Polyethylene Glycol (Miralax) 17 gm PO DAILY [facility] Stop: 01/15/19 10:01 Last Admin: 01/14/19 18:45 Dose: 17 gm Rosuvastatin Calcium (Crestor) 5 mg PO HS [facility] Last Admin: 01/14/19 21:29 Dose: 5 mg - Labs Labs: 01/14/19 07:25 01/14/19 07:20 PT 11.2 SECONDS (9.7-12.2) 01/12/19 23:51 INR 1.0 01/12/19 23:51 APTT 37.0 SECONDS (21-34) H 01/12/19 23:51
[2019-01-15 07:38] VITALS: BP 126/65; PULSE 64; TEMP 98.8; O2SAT 95
[2019-01-15 07:49] LABS: HEMOGLOBIN 9.1 g/dL (11.0-16.0); MEAN CELL VOLUME 94.7 fL (81.0-99.0); MEAN CORPUSCULAR HEMOGLOBIN 31.4 pg (27.0-31.0); MEAN CORPUSCULAR HGB CONC 33.2 g/dL (33.0-37.0); MEAN PLATELET VOLUME 8.3 fL (7.2-11.7); RBC 2.91 Mil/uL (3.80-5.20); RED CELL DISTRIBUTION WIDTH 14.2 % (11.5-14.5); WHITE BLOOD COUNT 7.3 K/uL (4.8-10.8)
--- NOTE | 2019-01-15 07:59 | CP.PCM.DIS ---
Provider - Provider Date of Admission: 01/13/19 03:51 Attending physician: Edwina Falcon MD Consults: 01/13/19 04:25 Physician Consult Routine Comment: Consulting Provider: Lamont Cruz Consulting Physician: Lamont Cruz Reason for Consult: GI Bleed 01/13/19 14:59 Cardiology Consult Routine Comment: gi bleed and ulcer on asa and plavix Consulting Provider: Hector Renteria Consulting Physician: Hector Renteria Reason for Consult: gi bleed on asa and plavix 01/14/19 12:47 Cardiology Consult Routine Comment: Consulting Provider: Rodrick Us Consulting Physician: Rodrick Us Reason for Consult: GI Bleed and ulcer, on ASA and Plavix. Time Spent in preparation of Discharge (in minutes): 30 Hospital Course - Lab Results Lab Results: Most Recent Lab Values WBC 7.3 K/uL (4.8-10.8) 01/15/19 06:56 RBC 2.91 Mil/uL (3.80-5.20) L 01/15/19 06:56 Hgb 9.1 g/dL (11.0-16.0) L 01/15/19 06:56 Hct 27.6 % (34.0-47.0) L 01/15/19 06:56 MCV 94.7 fL (81.0-99.0) 01/15/19 06:56 MCH 31.4 pg (27.0-31.0) H 01/15/19 06:56 MCHC 33.2 g/dL (33.0-37.0) 01/15/19 06:56 RDW 14.2 % (11.5-14.5) 01/15/19 06:56 Plt Count 237 K/uL (130-400) 01/15/19 06:56 MPV 8.3 fL (7.2-11.7) 01/15/19 06:56 Neut % (Auto) 45.6 % (50.0-75.0) L 01/12/19 23:51 Lymph % (Auto) 38.8 % (20.0-40.0) 01/12/19 23:51 [place] % (Auto) 10.3 % (0.0-10.0) H 01/12/19 23:51 Eos % (Auto) 4.9 % (0.0-4.0) H 01/12/19 23:51 Baso % (Auto) 0.4 % (0.0-2.0) 01/12/19 23:51 Neut # (Auto) 3.6 K/uL (1.8-7.0) 01/12/19 23:51 Lymph # (Auto) 3.1 K/uL (1.0-4.3) 01/12/19 23:51 [place] # (Auto) 0.8 K/uL (0.0-0.8) 01/12/19 23:51 Eos # (Auto) 0.4 K/uL (0.0-0.7) 01/12/19 23:51 Baso # (Auto) 0.0 K/uL (0.0-0.2) 01/12/19 23:51 PT 11.2 SECONDS (9.7-12.2) 01/12/19 23:51 INR 1.0 01/12/19 23:51 APTT 37.0 SECONDS (21-34) H 01/12/19 23:51 Sodium 134 mmol/L (132-148) 01/14/19 07:20 Potassium 4.3 mmol/L (3.6-5.2) 01/14/19 07:20 Chloride 103 mmol/L (98-107) 01/14/19 07:20 Carbon Dioxide 26 mmol/L (22-30) 01/14/19 07:20 Anion Gap 9 (10-20) L 01/14/19 07:20 BUN 13 mg/dL (7-17) 01/14/19 07:20 Creatinine 0.8 mg/dL (0.7-1.2) 01/14/19 07:20 Est GFR ( Amer) > 60 01/14/19 07:20 Est GFR (Non-Af Amer) > 60 01/14/19 07:20 Random Glucose 125 mg/dL (65-105) H 01/14/19 07:20 Calcium 9.8 mg/dl (8.6-10.4) 01/14/19 07:20 Total Bilirubin 0.2 mg/dL (0.2-1.3) 01/12/19 23:51 AST 30 U/L (14-36) 01/12/19 23:51 ALT 19 U/L (9-52) 01/12/19 23:51 Alkaline Phosphatase 47 U/L (38-126) 01/12/19 23:51 Total Protein 6.8 g/dL (6.3-8.3) 01/12/19 23:51 Albumin 4.5 g/dL (3.5-5.0) 01/12/19 23:51 Globulin 2.4 gm/dL (2.2-3.9) 01/12/19 23:51 Albumin/Globulin Ratio 1.9 (1.0-2.1) 01/12/19 23:51 Lipase 324 U/L (23-300) H 01/14/19 07:20 Urine Color Straw (YELLOW) 01/12/19 23:59 Urine Clarity Clear (Clear) 01/12/19 23:59 Urine pH 6.0 (5.0-8.0) 01/12/19 23:[address] [place] 1.003 (1.003-1.030) 01/12/19 23:59 Urine Protein Negative mg/dL (NEGATIVE) 01/12/19 23:59 Urine Glucose (UA) Normal mg/dL (Normal) 01/12/19 23:59 Urine Ketones Negative mg/dL (NEGATIVE) 01/12/19 23:59 Urine Blood Negative (NEGATIVE) 01/12/19 23:59 Urine Nitrate Negative (NEGATIVE) 01/12/19 23:59 Urine Bilirubin Negative (NEGATIVE) 01/12/19 23:59 Urine Urobilinogen Normal mg/dL (0.2-1.0) 01/12/19 23:59 Ur Leukocyte Esterase Trace [place]/uL (Negative) 01/12/19 23:59 Urine WBC (Auto) 5 /hpf (0-5) 01/12/19 23:59 Urine Bacteria Rare (<OCC) 01/12/19 23:59 Stool Occult Blood Positive (NEGATIVE) H 01/12/19 22:31 Blood Type O POSITIVE 01/12/19 23:51 Antibody Screen Negative 01/12/19 23:51 - Hospital Course Hospital Course: Pt admited with Melena, hgb of 8.5 in my office, here initial hgb was 9.4 then dropped to 8.4 after hydration. No further gi bleed. Pt had EGD + ulcer and gastritis. PT had plavix and asa stoped. Cardio consulted and they agree. PT feeling well\ IV iron given times two as she has chronic constipation and will have a hard time tolerating po iron. Discharge Exam - Head Exam Head Exam: ATRAUMATIC, NORMAL INSPECTION - ENT Exam ENT Exam: Mucous Membranes Dry - Respiratory Exam Respiratory Exam: Clear to PA & Lateral - Cardiovascular Exam Cardiovascular Exam: REGULAR RHYTHM, RRR, +S1, +S2. absent: JVD - GI/Abdominal Exam GI & Abdominal Exam: Normal Bowel Sounds, Soft. absent: Tenderness - Neurological Exam Neurological exam: Alert, CN II-XII Intact (except for facial paralisis from ho bells palsy), Oriented x3 - Skin Skin Exam: Dry, Intact, Normal Color, Warm Discharge Plan - Discharge Medications Prescriptions: Pantoprazole [Protonix Inj] 40 mg PO DAILY #90 vial - Follow Up Plan Condition: GOOD Disposition: HOME/ ROUTINE
[2019-01-15] MEDS ORDERED: Pneumococcal 23-Valent Vaccine IM ONE (08:52)
[2019-01-15] MEDS: POLYETHYLENE GLYCOL 3350 17 GM/Dose PACKET PO SCH (09:16)
[2019-01-15] MEDS: Multivitamin With Minerals Tab PO SCH (09:17)
[2019-01-15] MEDS: Ferric Sodium Gluconat Complex 62.5 mg/5 ml Vial IVPB SCH (09:53)
== END 2019-01-15 14:48 | disposition home or self-care (01) ==
LOC: C.ER 21:10 → C.3T 01-13 03:51
PROVIDERS: ADMIT Internal Medicine; ATTEND Internal Medicine
DX: K25.4 Chronic or unspecified gastric ulcer with hemorrhage (principal); D62 Acute posthemorrhagic anemia; K21.0 Gastro-esophageal reflux disease with esophagitis; K57.10 Diverticulosis of small intestine without perforation or abscess without bleeding; K29.70 Gastritis, unspecified, without bleeding; K59.09 Other constipation; E11.9 Type 2 diabetes mellitus without complications; I10 Essential (primary) hypertension; E87.1 Hypo-osmolality and hyponatremia; I25.10 Atherosclerotic heart disease of native coronary artery without angina pectoris; E78.00 Pure hypercholesterolemia, unspecified; Z95.1 Presence of aortocoronary bypass graft; Z90.49 Acquired absence of other specified parts of digestive tract; Z95.5 Presence of coronary angioplasty implant and graft
CPT/HCPCS: 36415; 43235; 74177; 80048; 80053; 81001; 83690; 85025; 85027; 85610; 85730; 86850; 86900; 86920; 93005; 97116; 97162; 99285; C9113; G0328; G0378; G8978; G8979; J2916; J7030; J7042; J7120; Q9966; Q9967